=== PATIENT | male | born 1990 | race Two or more races ===

== ENCOUNTER 2020-01-27 17:39 | Emergency (ER) | payer BC ==
--- NOTE | 2020-01-27 18:22 | ER Document Report ---
ED Medical Screen (RME) - General Chief Complaint: Near Syncope Stated Complaint: BLOOD PRESSURE ISSUES Time Seen by Provider: 01/27/20 18:20 Mode of Arrival: Ambulatory Information source: Patient Notes: 29-year-old male was seen today in the ED for complaint of body feeling like he got very hot then he got shaky dizzy nauseated he did not pass out either time. He states the people at work took his blood pressure after the first time and his blood pressure was very low and getting lower. He states when he got really shaky and dizzy he went and ate some [employer] and now he feels much better. He states his blood pressure feels much better and he feels normal now. He states he went to a doctor on Tuesday and they told him the next time it happened to come straight to the emergency room. He states he did stop to eat before coming. Patient states he does not drink smoke or use any drugs. He also states he has no medical or surgical history. I have greeted and performed a rapid initial assessment of this patient. A comprehensive ED assessment and evaluation of the patient, analysis of test results and completion of medical decision making process will be conducted by an additional ED providers. - Related Data Allergies/Adverse Reactions: Penicillins Allergy (Verified 01/27/20 18:19) Physical Exam - Vital signs Vitals: Temp Pulse Resp BP Pulse Ox 97.7 F 70 16 135/86 H 100 01/27/20 17:50 01/27/20 17:50 01/27/20 17:50 01/27/20 17:50 01/27/20 17:50 Course - Vital Signs Vital signs: Temp Pulse Resp BP Pulse Ox 97.7 F 70 16 135/86 H 100 01/27/20 17:50 01/27/20 17:50 01/27/20 17:50 01/27/20 17:50 01/27/20 17:50
[2020-01-27 19:15] LABS: ABSOLUTE EOSINOPHILS # (AUTO) 0.2 10^3/uL (0.0-0.6); ABSOLUTE LYMPHOCYTES (AUTO) 2.3 10^3/uL (0.5-4.7); ABSOLUTE MONOCYTES (AUTO) 0.8 10^3/uL (0.1-1.4); ABSOLUTE NEUT (AUTO) 5.4 10^3/uL (1.7-8.2); BASOPHILS % (AUTO) 0.5 % (0-2); EOSINOPHILS % (AUTO) 2.2 % (0-6); HEMATOCRIT 42.8 % (37.9-51.0); HEMOGLOBIN 15.1 g/dL (13.5-17.0); LYMPHOCYTES % (AUTO) 26.5 % (13-45); MEAN CORPUSCULAR HEMOGLOBIN 32.3 pg (27.0-33.4); MEAN CORPUSCULAR HGB CONC 35.3 g/dL (32.0-36.0); MEAN CORPUSCULAR VOLUME 92 fl (80-97); MONOCYTES % (AUTO) 8.9 % (3-13); PLATELET COUNT 194 10^3/uL (150-450); RED BLOOD COUNT 4.66 10^6/uL (4.35-5.55); RED CELL DISTRIBUTION WIDTH 12.7 % (11.5-14.0); SEGMENTED NEUTROPHILS % (AUTO) 61.9 % (42-78); TOTAL CELLS COUNTED % (AUTO) 100 %; WHITE BLOOD COUNT 8.8 10^3/uL (4.0-10.5)
[2020-01-27 19:32] LABS: ALBUMIN 4.4 g/dL (3.5-5.0); ALKALINE PHOSPHATASE 67 U/L (38-126); ANION GAP 8 (5-19); ASPARTATE AMINO TRANSFERASE 25 U/L (17-59); BILIRUBIN,DIRECT 0.2 mg/dL (0.0-0.4); BILIRUBIN,TOTAL 0.8 mg/dL (0.2-1.3); BLOOD UREA NITROGEN 19 mg/dL (7-20); CALCIUM 9.6 mg/dL (8.4-10.2); CARBON DIOXIDE 28 mmol/L (22-30); CHLORIDE 106 mmol/L (98-107); CREATINE KINASE 148 U/L (55-170); POTASSIUM 4.2 mmol/L (3.6-5.0); TOTAL PROTEIN 6.9 g/dL (6.3-8.2)
[2020-01-27 19:40] LABS: GLUCOSE 68 mg/dL (75-110)
--- NOTE | 2020-01-27 20:15 | EKG REPORT ---
SEVERITY:- NORMAL ECG - SINUS RHYTHM : Confirmed by: Ray Hines MD 27-Jan-2020 20:14:55
[2020-01-27 21:07] LABS: APPEARANCE,URINE CLEAR; BILIRUBIN,URINE NEGATIVE (NEGATIVE); COLOR,URINE YELLOW; GLUCOSE, URINE NEGATIVE (NEGATIVE); KETONES,URINE NEGATIVE (NEGATIVE); LEUKOCYTE ESTERASE,URINE NEGATIVE (NEGATIVE); NITRITE,URINE NEGATIVE (NEGATIVE); PROTEIN,URINE NEGATIVE (NEGATIVE); UROBILINOGEN,URINE NEGATIVE mg/dL (<2.0)
[2020-01-27] MEDS ORDERED: DEXTROSE 40% GEL 15 GM TUBE PO PRN (22:05)
--- NOTE | 2020-01-27 22:47 | ER Document Report ---
ED General - General Chief Complaint: Near Syncope Stated Complaint: BLOOD PRESSURE ISSUES Time Seen by Provider: 01/27/20 18:20 Mode of Arrival: Ambulatory Notes: Patient is a 29-year-old male with no significant past medical history presents to the emergency department today with a chief complaint of near s yncopal episodes. He states , 3 days ago he was at work and had an episode where he describes getting shaky feeling sweaty and getting tunnel vision feeling like he was going to pass out. States he went to the nurse at his job and she evaluated him and he states he believes she said it was something to do with his blood pressure but cannot recall any specifics or the numbers. He states he was fine later in for the next couple of days. 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 He states he woke up around 4 PM and shortly after was out walking around going to some shops when he suddenly started to feel the same way, shaky, sweaty, faint and weak like he might pass out with the tunneling of his vision. He states he felt like eating something might help so they went to [employer] where he ate a good amount of food and states that he almost instantaneously felt better. He states his family was c oncerned that the second episode so he came for evaluation. He states that he saw an urgent care between these 2 episodes to see if they could find out what else might be causing this states they did a work-up only including vital signs and exam and stated that he was fine and sent him out. He currently is asymptomatic. - Related Data Allergies/Adverse Reactions: Penicillins Allergy (Verified 01/27/20 18:19) Past Medical History - General Information source: Patient - Social History Smoking Status: Never Smoker Chew tobacco use (# tins/day): No Frequency of alcohol use: None Drug Abuse: None Family History: Reviewed & Not Pertinent Review of Systems - Review of Systems Constitutional: denies: Fever EENT: denies: Nose pain Cardiovascular: denies: Orthopnea Respiratory: denies: Sputum Gastrointestinal: denies: Vomiting, Poor appetite Genitourinary: denies: Frequency Male Genitourinary: denies: Testicular pain Musculoskeletal: denies: Deformity Skin: denies: Change in hair/nails Hematologic/Lymphatic: denies: Easy bruising Neurological/Psychological: denies: Homicidal ideation Physical Exam - Vital signs Vitals: Temp Pulse Resp BP Pulse Ox 97.7 F 70 16 135/86 H 100 01/27/20 17:50 01/27/20 17:50 01/27/20 17:50 01/27/20 17:50 01/27/20 17:50 - General General appearance: Appears well, Alert In distress: None - HEENT Head: Normocephalic, Atraumatic Eyes: Normal Conjunctiva: Normal Extraocular movements intact: Yes Eyelashes: Normal Pupils: PERRL Ears: Normal External canal: Normal Nasal: Normal Mouth/Lips: Normal Mucous membranes: Normal Pharynx: Normal Neck: Normal - Respiratory Respiratory status: No respiratory distress Chest status: Nontender Breath sounds: Normal Chest palpation: Normal - Cardiovascular Rhythm: Regular Heart sounds: Normal auscultation - Abdominal Inspection: Normal Distension: No distension Bowel sounds: Normal Tenderness: Nontender Organomegaly: No organomegaly - Extremities General upper extremity: Normal inspection, Nontender, Normal color, Normal ROM, Normal temperature General lower extremity: Normal inspection, Nontender, Normal color, Normal ROM, Normal temperature, Normal weight bearing. 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 Patient adds his mother has a history of diabetes, unsure if type I or II. States no other family history of any disease that he is aware of. Suspect transient episodes of hypoglycemia. The patient states sometimes he eats up to 3 times a day but often less. His history physical and work-up are consistent with this transient episodes of hypoglycemi a. We discussed the need for further outpatient work-up for definitive etiologies. In the meantime advised that he carry oral glucose tablets as needed on hand and that he change his diet to smaller more frequent meals to sort of grazing throughout the day and focusing more on complex carbohydrates. He verbalized understanding and agreed. Discussed the importance of outpatient follow-up and advised that he return here or any ER immediately with any new, persistent or worsening symptoms. He verbalized understood and agreed. - Vital Signs Vital signs: Temp Pulse Resp BP Pulse Ox 97.7 F 70 16 135/86 H 100 01/27/20 17:50 01/27/20 17:50 01/27/20 17:50 01/27/20 17:50 01/27/20 17:50 - Laboratory Result Diagrams: 01/27/20 18:42 01/27/20 18:42 Laboratory results interpreted by me: 01/27/20 18:42 Glucose 68 L Discharge - Discharge Clinical Impression: transient hypoglycemia Condition: Stable Disposition: HOME, SELF-CARE Instructions: Chronic Hypoglycemia ([facility]), Hypoglycemia Diet ([facility]) Additional Instructions: Please follow-up with primary care doctor provider on your paperwork for further outpatient testing and management. Please return here or any ER immediately with any new, persistent or worsening symptoms. Referrals: BJ ACHARYA MD [ACTIVE STAFF] - Follow up as needed
[2020-01-27 23:04] VITALS: BP 129/91
== END 2020-01-27 23:04 | disposition home or self-care (01) ==
LOC: ER 17:39
DX: E16.2 Hypoglycemia, unspecified (principal); R55 Syncope and collapse; Z88.0 Allergy status to penicillin; Z83.3 Family history of diabetes mellitus
CPT/HCPCS: 36415; 80053; 81001; 82550; 82962; 84484; 85025; 93005; 93010; 99284